=== PATIENT | male | born 2000 | race Caucasian/White ===

== ENCOUNTER 2021-11-04 09:33 | Emergency (ER) | payer BC | END 2021-11-04 10:35 | disposition home or self-care (01) | LOC: JD.ED 09:33 | DX: N45.1 Epididymitis (principal) | CPT/HCPCS: 99283 ==

== ENCOUNTER 2022-09-22 10:06 | Emergency (ER) | payer BC ==
[2022-09-22 10:37] LABS: HEMATOCRIT 46.1 % (40.1-51.0); HEMOGLOBIN 15.4 gm/dl (13.7-17.5); MEAN CORPUSCULAR HEMOGLOBIN 32.8 pg (25.7-32.2); MEAN CORPUSCULAR HGB CONC 33.4 g/dl (32.2-35.5); MEAN CORPUSCULAR VOLUME 98.1 fl (79.0-92.2); PLATELET COUNT,PLT 180 K/mm3 (163-337); WHITE BLOOD CELL COUNT,WBC 6.16 K/mm3 (4.23-9.07)
[2022-09-22 10:59] LABS: PROTHROMBIN TIME 10.7 SECONDS (9.7-12.0)
[2022-09-22 11:02] LABS: D-DIMER QUANTITATIVE < 0.19 mg/L (0.19-0.50)
[2022-09-22 11:16] LABS: BAND PERCENT MAN 1 % (0-10); BASOPHILS PERCENT MAN 1 (0.2-1.2); EOSINOPHILS PERCENT MAN 2 % (0.8-7.0); LYMPHOCYTES % ATYPICAL MANUAL 0 %; LYMPHOCYTES PERCENT MAN 35 % (20-40); MONOCYTES PERCENT MAN 5 % (2-10)
[2022-09-22 11:17] LABS: PLATELET COUNT ESTIMATE ADEQUATE
[2022-09-22 11:21] LABS: APPEARANCE,URINE CLEAR (Clear); BILIRUBIN,URINE NEGATIVE (Negative); COLOR,URINE YELLOW (Yellow); GLUCOSE,URINE NEGATIVE (Negative); KETONES,URINE NEGATIVE (Negative); LEUKOCYTE ESTERASE,URINE NEGATIVE (Negative); NITRITE,URINE NEGATIVE (Negative); OCCULT BLOOD,URINE NEGATIVE (Negative); PROTEIN,URINE 1+ (Negative); UROBILINOGEN,URINE 0.2 (0.2-1.0)
[2022-09-22 11:31] LABS: BARBITURATE SCREEN,URINE NEGATIVE (CUTOFF=200); BENZODIAZEPINES SCREEN,URINE NEGATIVE (CUTOFF=150); BUPRENORPHINE SCREEN,URINE NEGATIVE (CUTOFF=10); METHADONE SCREEN, URINE NEGATIVE (CUT0FF=200); METHAMPHETAMINES SCREEN, URINE NEGATIVE (CUTOFF=500); OXYCODONE SCREEN,URINE NEGATIVE (CUT0FF=100); PROPOXYPHENE SCREEN,URINE NEGATIVE (CUTOFF=300); THC SCREEN,URINE 20 NG/ML NEGATIVE (CUTOFF=50)
[2022-09-22 11:33] LABS: A/G RATIO 0.9 (1-2); ALBUMIN 3.9 g/dl (3.4-5.0); ANION GAP 11.8 (5-15); BILIRUBIN TOTAL 0.7 mg/dL (0.2-1.0); CKMB 1.1 ng/ml (0-3.6); CREATININE 1.1 mg/dL (0.7-1.3); EST CRCL DRUG DOSING (CG) 92.35 mL/min; POTASSIUM,K 3.8 mEq/L (3.5-5.1); PROTEIN TOTAL,TP 8.3 g/dl (6.4-8.2)
[2022-09-22 11:33] LABS: AMPHETAMINES SCREEN, URINE NEGATIVE (CUTOFF=500)
[2022-09-22 11:39] LABS: BACTERIA,URINE RARE /hpf (FEW); MUCUS,URINE MANY /hpf (FEW); RBC,URINE 0-5 /hpf (0-5); SQUAMOUS EPITHELIAL CELLS,UR 0-5 /hpf (0-5); WBC,URINE 0-5 /hpf (0-5)
== END 2022-09-22 13:29 | disposition home or self-care (01) ==
LOC: JD.ED 10:06
DX: R07.89 Other chest pain (principal)
CPT/HCPCS: 36415; 71045; 71045-26; 80053; 80306; 81001; 82553; 84484; 85007; 85027; 85379; 85610; 93005; 99285